=== PATIENT | female | born 1955 | race Caucasian/White ===

== ENCOUNTER 2023-04-22 08:05 | Outpatient (CLI) | payer MEDICARE, SELFPAY ==
--- NOTE | 2023-04-22 08:15 | CRLHL7_ITS ---
For Patients: As a result of the Century Cures Act, medical imaging exams and procedure reports are released immediately into your electronic medical record. You may view this report before your referring provider. If you have questions, please contact your health care provider. BILATERAL SCREENING MAMMOGRAM WITH COMPUTER-AIDED DETECTION AND TOMOSYNTHESIS TECHNIQUE: CC and MLO views were obtained. These mammographic images have been obtained using full-field digital technique. These mammographic images were interpreted with the benefit of computer-aided detection. Breast Tomosynthesis was used in this interpretation. COMPARISON FILM: 08/14/21, 08/08/20, 05/06/19. FINDINGS: There are scattered areas of fibroglandular density IMPRESSION: There is no radiographic evidence for malignancy. ASSESSMENT: BI-RADS Category 1: Negative RECOMMENDATION: Routine screening mammogram in 1 year. A lay language report of this examination will be provided to the patient. Vinnie Bowling M.D. Diagnostic/Nuclear Medicine Radiologist [email or web address] IRENE/Dictated by: Vinnie Bowling MD @ 04/22/2023 9:06:00 AM (Electronically Signed)
== END 2023-04-22 08:06 | disposition home or self-care (01) ==
LOC: MAMMO 08:06
PROVIDERS: PCP Internal Medicine; Visit Provider Obstetrics & Gynecology
DX: Z12.31 Encounter for screening mammogram for malignant neoplasm of breast (principal)
CPT/HCPCS: 77063; 77067

== ENCOUNTER 2023-07-24 08:20 | Outpatient (CLI) | payer MEDICARE, SELFPAY | END 2023-07-24 08:21 | disposition home or self-care (01) | LOC: NFLDREF 07-25 11:48 | PROVIDERS: PCP Internal Medicine; Referring Provider Internal Medicine; Visit Provider Internal Medicine | DX: I10 Essential (primary) hypertension (principal); E66.9 Obesity, unspecified; E55.9 Vitamin D deficiency, unspecified; Z13.6 Encounter for screening for cardiovascular disorders | CPT/HCPCS: 80053; 80061; 82306 ==

== ENCOUNTER 2024-11-25 08:06 | Outpatient (CLI) | payer MEDICARE, SELFPAY | END 2024-11-25 08:07 | disposition home or self-care (01) | LOC: NFLDREF 18:39 | PROVIDERS: PCP Internal Medicine; Referring Provider Internal Medicine; Visit Provider Internal Medicine | DX: E78.5 Hyperlipidemia, unspecified (principal); I10 Essential (primary) hypertension; E66.9 Obesity, unspecified; E55.9 Vitamin D deficiency, unspecified; Z13.9 Encounter for screening, unspecified | CPT/HCPCS: 80053; 80061; 82306 ==

== ENCOUNTER 2024-12-02 09:32 | Outpatient (CLI) | payer MEDICARE, SELFPAY ==
--- NOTE | 2024-12-02 10:15 | CRLHL7_ITS ---
For Patients: As a result of the Century Cures Act, medical imaging exams and procedure reports are released immediately into your electronic medical record. You may view this report before your referring provider. If you have questions, please contact your health care provider. BILATERAL SCREENING MAMMOGRAM WITH COMPUTER-AIDED DETECTION AND TOMOSYNTHESIS TECHNIQUE: CC and MLO views were obtained. These mammographic images have been obtained using full-field digital technique. These mammographic images were interpreted with the benefit of computer-aided detection. Breast Tomosynthesis was used in this interpretation. COMPARISON FILM: 04/22/23, 08/14/21, 08/08/20. FINDINGS: There are scattered areas of fibroglandular density. IMPRESSION: There is no radiographic evidence for malignancy. ASSESSMENT: BI-RADS Category 1: Negative RECOMMENDATION: Routine screening mammogram in 1 year. A lay language report of this examination will be provided to the patient. Pascual Lewis M.D. Diagnostic Radiologist [email or web address] SP/Dictated by: Pascual Lewis MD @ 12/02/2024 12:30:00 PM (Electronically Signed)
== END 2024-12-02 09:33 | disposition home or self-care (01) ==
LOC: MAMMO 09:32
PROVIDERS: PCP Internal Medicine; Visit Provider Obstetrics & Gynecology
DX: Z12.31 Encounter for screening mammogram for malignant neoplasm of breast (principal)
CPT/HCPCS: 77063; 77067

== ENCOUNTER 2024-12-07 06:28 | Outpatient (CLI) | payer MEDICARE, SELFPAY ==
--- NOTE | 2024-12-07 07:45 | P.ANES_ITS ---
Anesthesia Charges Start Date/Time Anesthesia Start Date: 12/07/24 Anesthesia Start Time: 07:22 Stop Date/Time Anesthesia Stop Date: 12/07/24 Anesthesia Stop Time: 07:44 Coding CPT Codes CPT Codes: ANES LWR INTST SCR COLSC - 30962 ([id number]) P2 - PATIENT W/MILD SYST DISEASE, QK - SIDE FRAMER 2-4 CNCRNT ANES PROC, QX - HOOD MAKER SVC W/ MD MED DIRECTION
--- NOTE | 2024-12-07 07:45 | W.ANESCHARGE ---
Anesthesia Charges Start Date/Time Anesthesia Start Date: 12/07/24 Anesthesia Start Time: 07:22 Stop Date/Time Anesthesia Stop Date: 12/07/24 Anesthesia Stop Time: 07:44 Coding CPT Codes CPT Codes: ANES LWR INTST SCR COLSC - 13011 ([id number]) P2 - PATIENT W/MILD SYST DISEASE, QK - SANDING MACHINE OPERATOR 2-4 CNCRNT ANES PROC, QX - WIRE STOCKKEEPER SVC W/ MD MED DIRECTION
--- NOTE | 2024-12-07 11:16 | P.ANES_ITS ---
Anesthesia Charges Start Date/Time Anesthesia Start Date: 12/07/24 Anesthesia Start Time: 07:22 Stop Date/Time Anesthesia Stop Date: 12/07/24 Anesthesia Stop Time: 07:44 Coding CPT Codes CPT Codes: LOPEZ LWR INTST SCR COLSC - [id number] ([id number]) P2 - PATIENT W/MILD SYST DISEASE, QX - NURSE COORDINATOR SVC W/ MD MED DIRECTION, QK - RN CARDIOLOGY 2-4 CNCRNT ANES PROC
--- NOTE | 2024-12-07 11:16 | W.ANESCHARGE ---
Anesthesia Charges Start Date/Time Anesthesia Start Date: 12/07/24 Anesthesia Start Time: 07:22 Stop Date/Time Anesthesia Stop Date: 12/07/24 Anesthesia Stop Time: 07:44 Coding CPT Codes CPT Codes: LOPEZ LWR INTST SCR COLSC - [id number] ([id number]) P2 - PATIENT W/MILD SYST DISEASE, QX - ALIGNING INSPECTOR SVC W/ MD MED DIRECTION, QK - JINGLE WRITER 2-4 CNCRNT ANES PROC
== END 2024-12-07 06:29 | disposition home or self-care (01) ==
LOC: OP CLINIC 06:28
PROVIDERS: PCP Internal Medicine; Visit Provider Internal Medicine
DX: Z12.11 Encounter for screening for malignant neoplasm of colon (principal); Z86.0100 Personal history of colon polyps, unspecified
CPT/HCPCS: 00812; 45378; J2704